=== PATIENT | female | born 1980 | race Caucasian/White ===

== ENCOUNTER 2017-12-14 03:00 | Emergency (ER) | payer SELFPAY ==
[~2017-12-14] VITALS: Ht 162.6 cm; Wt 81.7 kg
[~2017-12-14 03:00] MED LIST: ACEASPCAF PO; ACET325 PO; ALBU90OI INH; AMOX500 PO; ATOR40TA PO; AZIT250 PO; BUTASPCAFT; CARI350 PO; CEPH500 PO; CYCL10 PO; DOXY100 PO; ERYSTE250 PO; ESTR2 PO; FLUO20; FROV2.5; GUAI1200ER PO; HYDACE5 PO; HYDACE5325 PO; HYDGUAL120 PO; HYDR1TAB94 PO; IBUP400 PO; IBUP600 PO; IBUP800 PO; MELO7.5 PO; META800 PO; NAPR500 PO; NYQUIL; Naprosyn500 MG PO; OXYACE5T PO; PENVK500 PO; PROM25 PO; PROP60; Prilosec Otc20 MG PO; RXHYDACE PO; SULTRIDS PO; Ultram50 MG PO; Zofran8 MG PO
== END 2017-12-14 05:02 | disposition home or self-care (01) ==
LOC: ER 03:00
DX: S60.221A Contusion of right hand, initial encounter (principal); F17.200 Nicotine dependence, unspecified, uncomplicated; Z90.710 Acquired absence of both cervix and uterus; W22.8XXA Striking against or struck by other objects, initial encounter
CPT/HCPCS: 73130; 99283

== ENCOUNTER 2019-01-27 07:07 | Day surgery (SDC) | payer OTHER ==
[~2019-01-27 07:07] MED LIST changes: +OMEPRAZOLE MAGN20 MG PO; +Prinivil5 MG PO; +SERT100 PO
--- NOTE | 2019-01-27 07:37 | NUR ---
Ambulatory in Day Surgery History, Chart, Medications and Allergies reviewed before start of procedure.Patient confirms NPO status and agrees with scheduled surgery.
--- NOTE | 2019-01-27 08:14 | NUR ---
01/27/19 0814 Meg Arce History, Chart, Medications and Allergies reviewed before start of procedure.MODERATE SEDATION DUE TO TRISTON. MONITOR INTACT WITH CONTINUOUS PULSE OXIMETRY AND INTERMITTENT BP.3-LEAD EKG REVIEWED WITH PHYSICIAN PRIOR TO START OF PROCEDURE.O2 VIA N/C INTACT THROUGHOUT SEDATION/PROCEDURE.
--- NOTE | 2019-01-27 09:33 | NUR ---
"DAY SURGERY RN | DISCHARGE Patient denies nausea. Discharge instructions given. VSS. A/O. Steady on feet. Patient taken in wheelchair by volunteer to front entance. SO is ride. All belongings returned to patient."
== END 2019-01-27 12:00 | disposition home or self-care (01) ==
LOC: ORSCMMR 07:07 → ORD 08:00 → ORSCMMR 08:00
PROVIDERS: Internal Medicine Gastroenterology
PROC: 0DB98ZX Excision of Duodenum, Via Natural or Artificial Opening Endoscopic, Diagnostic (ICD-10-PCS; principal; 2019-01-27 08:00)
PROC: 0DB68ZX Excision of Stomach, Via Natural or Artificial Opening Endoscopic, Diagnostic (ICD-10-PCS; principal; 2019-01-27 08:00)
PROC: 0DB58ZX Excision of Esophagus, Via Natural or Artificial Opening Endoscopic, Diagnostic (ICD-10-PCS; principal; 2019-01-27 08:00)
DX: K21.9 Gastro-esophageal reflux disease without esophagitis (principal); R10.13 Epigastric pain; K29.80 Duodenitis without bleeding; K44.9 Diaphragmatic hernia without obstruction or gangrene; G47.33 Obstructive sleep apnea (adult) (pediatric); I10 Essential (primary) hypertension; E78.00 Pure hypercholesterolemia, unspecified; Z79.899 Other long term (current) drug therapy
CPT/HCPCS: 88305; 88342; J2250; J2405; J3010; J7120

== ENCOUNTER 2020-09-08 21:43 | Inpatient (IN) | payer OTHER ==
[~2020-09-08] VITALS: Ht 162.6 cm; Wt 98.4 kg
[2020-09-08 22:07] LABS: BASOPHILS ABSOLUTE AUTO 0.03 K/mm3 (0.00-0.23); BASOPHILS PERCENT AUTO 0 % (0-2); EOSINOPHILS PERCENT AUTO 0 % (0-6); Hematocrit 40.5 % (33.0-51.0); Hemoglobin 13.1 g/dL (11.5-16.0); IMMATURE GRAN PERCENT AUTO 1 % (0-1); LYMPHOCYTES ABSOLUTE AUTO 3.04 K/mm3 (0.84-5.20); LYMPHOCYTES PERCENT AUTO 17 % (21-46); MONOCYTES ABSOLUTE AUTO 1.12 K/mm3 (0.16-1.47); MONOCYTES PERCENT AUTO 6 % (4-13); Mean Corpuscular HGB 26.8 pg (26.0-34.0); Mean Corpuscular HGB Conc 32.3 g/dL (31.5-36.5); Mean Corpuscular Volume 83 fL (80-100); Mean Platelet Volume 9.7 fL (9.1-12.4); NEUTROPHILS PERCENT AUTO 75 % (41-73); Platelet Count 290 K/mm3 (150-400); RDW Coefficient Variation 15.8 % (11.7-14.2); RDW Standard Deviation 47.8 fL (35.1-46.3); Red Blood Cell Count 4.89 M/mm3 (3.80-5.20); White Blood Cell Count 17.49 K/mm3 (4.00-11.30)
[2020-09-08 22:28] LABS: Alanine Aminotransfer (ALT/SGP 33 U/L (12-78); Albumin, Blood 3.8 g/dL (3.4-5.0); Alk Phos 88 U/L (50-136); Anion Gap 8 mmol/L (6-16); Aspartate Aminotrans (AST/SGOT 10 U/L (12-37); Bilirubin, Total 0.1 mg/dL (0.1-1.0); Blood Urea Nitrogen 30 mg/dL (8-24); Bun/Creatinine Ratio 37.9 (12.0-20.0); CO2, Blood 23 mmol/L (21-32); Calcium, Blood 8.6 mg/dL (8.5-10.1); Chloride, Blood 110 mmol/L (98-108); Creatinine, Blood 0.79 mg/dL (0.40-1.00); Globulin, Blood 3.7 g/dL (2.2-4.0); Glomerular Filtration Rate >60 (60-); Glucose, Blood 124 mg/dL (70-99); Potassium, Blood 3.7 mmol/L (3.5-5.5); Sodium, Blood 141 mmol/L (136-145); Total Protein, Blood 7.5 g/dL (6.4-8.2); Troponin I <0.015 ng/mL (0.000-0.040)
[2020-09-08 22:34] LABS: Magnesium, Blood 1.8 mg/dL (1.6-2.4)
[2020-09-08 23:54] LABS: Adenovirus Not Detected (NOT DETECT); Bordetella pertussis Not Detected (NOT DETECT); Chlamydophila pneumoniae Not Detected (NOT DETECT); Coronavirus 229E Not Detected (NOT DETECT); Coronavirus HKU1 Not Detected (NOT DETECT); Coronavirus NL63 Not Detected (NOT DETECT); Coronavirus OC43 Not Detected (NOT DETECT); Human Metapneumovirus Not Detected (NOT DETECT); Human Rhinovirus/Enterovirus Detected (NOT DETECT); Influenza A/2009-H1 Not Detected (NOT DETECT); Influenza A/H1 Not Detected (NOT DETECT); Influenza A/H3 Not Detected (NOT DETECT); Influenza B Not Detected (NOT DETECT); Mycoplasma pneumoniae Not Detected (NOT DETECT); Parainfluenza Virus 1 Not Detected (NOT DETECT); Parainfluenza Virus 2 Not Detected (NOT DETECT); Parainfluenza Virus 3 Not Detected (NOT DETECT); Parainfluenza Virus 4 Not Detected (NOT DETECT); Respiratory Syncytial Virus Not Detected (NOT DETECT); SARS-Cov-2 (COVID-19), BioFire Not Detected (NOT DETECT)
[2020-09-09 00:36] LABS: Source, Urine Clean Catch
[2020-09-09 00:41] LABS: Bilirubin, Urine Neg (Neg); Blood, Urine 3+ (Neg); Glucose Qualitative, Urine Neg (Neg); Ketones, Urine Neg (Neg); Leukocyte Esterase, Urine 1+ (Neg); Nitrite, Urine Neg (Neg); Protein, Urine Neg (Neg); Urobilinogen, Urine NORM (Normal)
[2020-09-09 00:47] LABS: Appearance, Urine Clear (Clear); Bacteria Mod /hpf; Color, Urine Yellow (P-Yellow); Red Blood Cells, Urine 0-2 /hpf (0-2); Squamous Epithelial Cells Few /hpf (Few)
[2020-09-09 01:56] LABS: Base Excess Venous -1.6 mmol/L; Bicarbonate Venous 22.6 mmol/L (24.0-30.0); PCO2 Venous 36.4 mmHg (38-42); PO2 Venous 31.3 mmHg (38-42); pH Blood Venous 7.41 (7.34-7.37)
--- NOTE | 2020-09-09 04:35 | NUR ---
ADMIT NOTE PT ARRIVED TO PCU FROM ED AT APPROX 0302. PT AMBULATED FROM HALLWAY TO PCU BED W/O ASSISTANCE. PT A&OX4. SP02>92% ON RA. PT HAS A NON PRODUCTIVE COUGH OCCASIONALLY. SOB UPON EXERTION. TELEMETRY READS SINUS RHYTHM, HR 60'S. PT WAS ABLE TO AMBULATE TO BATHROOM AND BACK TO BED W/O ASSISTANCE, MINIMAL SOB. PT DENIES PAIN. NS INFUSING PER EMAR. CALL LIGHT IN REACH. WILL CONTINUE TO MONITOR UNTIL END OF SHIFT.
--- NOTE | 2020-09-09 05:48 | NUR ---
CRITICAL LAB LAB CALLED AT APPROX 0445 TO NOTIFY CRITICAL LAB VALUE OF LACTIC ACID: 4.5. CALL PLACED TO MD WYATT. MD WYATT WITH ORDERS FOR REPEAT LACTIC ACID LAB AT NOON. WILL CONTINUE TO MONITOR.
--- NOTE | 2020-09-09 06:25 | NUR ---
SHIFT SUMMARY PT ARRIVED TO PCU THIS MORNING, SEE ADMIT NOTE. PT A&OX4. SP02>92% ON RA. PT HAS A NON PRODUCTIVE COUGH OCCASIONALLY. SOB UPON EXERTION. TELEMETRY READS SINUS RHYTHM, HR 60'S. PT WAS ABLE TO AMBULATE TO BATHROOM AND BACK TO BED W/O ASSISTANCE, MINIMAL SOB. PT DENIES PAIN. NS INFUSING PER EMAR. PT HAD CRITICAL LAB VALUE LACTIC ACID, SEE PREVIOUS NOTE. PT SLEPT/WATCHED TV INDEPENDENTLY IN ROOM THIS MORNING. CALL LIGHT IN REACH. WILL CONTINUE TO MONITOR UNTIL END OF SHIFT.
[2020-09-09 08:43] LABS: BASOPHILS ABSOLUTE AUTO 0.01 K/mm3 (0.00-0.23); BASOPHILS PERCENT AUTO 0 % (0-2); EOSINOPHILS ABSOLUTE AUTO 0.03 K/mm3 (0.00-0.68); EOSINOPHILS PERCENT AUTO 0 % (0-6); Hematocrit 37.1 % (33.0-51.0); Hemoglobin 12.1 g/dL (11.5-16.0); IMMATURE GRAN ABSOLUTE AUTO 0.13 K/mm3 (0.00-0.10); IMMATURE GRAN PERCENT AUTO 1 % (0-1); LYMPHOCYTES ABSOLUTE AUTO 2.45 K/mm3 (0.84-5.20); LYMPHOCYTES PERCENT AUTO 16 % (21-46); MONOCYTES ABSOLUTE AUTO 0.38 K/mm3 (0.16-1.47); MONOCYTES PERCENT AUTO 3 % (4-13); Mean Corpuscular HGB 26.9 pg (26.0-34.0); Mean Corpuscular HGB Conc 32.6 g/dL (31.5-36.5); Mean Corpuscular Volume 83 fL (80-100); NEUTROPHILS ABSOLUTE AUTO 12.45 K/mm3 (1.96-9.15); NEUTROPHILS PERCENT AUTO 81 % (41-73); Platelet Count 272 K/mm3 (150-400); RDW Coefficient Variation 15.9 % (11.7-14.2); RDW Standard Deviation 47.7 fL (35.1-46.3); Red Blood Cell Count 4.49 M/mm3 (3.80-5.20); White Blood Cell Count 15.45 K/mm3 (4.00-11.30)
[2020-09-09 09:02] LABS: Anion Gap 10 mmol/L (6-16); Blood Urea Nitrogen 21 mg/dL (8-24); Bun/Creatinine Ratio 29.2 (12.0-20.0); CO2, Blood 20 mmol/L (21-32); Chloride, Blood 113 mmol/L (98-108); Creatinine, Blood 0.72 mg/dL (0.40-1.00); Glomerular Filtration Rate >60 (60-); Glucose, Blood 129 mg/dL (70-99); Sodium, Blood 143 mmol/L (136-145)
--- NOTE | 2020-09-09 10:51 | NUR ---
PHYSICIAN NOTIFIED AT BEDSIDE WITH PT. AND PT CONCERNED WITH POSSIBLE DISHCARGE TODAY. REQUESTING TRANSFER TO [facility] IF DISHCARGED. PHYSICIAN NOTIFIED. PHYSICIAN WILL SPEAK WITH PT AND THIS AFTERNOON.
--- NOTE | 2020-09-09 18:40 | NUR ---
SHIFT SUMMARY PT ALERT AND ORIENTED X 4. PT ANXIOUS T/O SHIFT D/T INCREASE IN WORK OF BREATHING. PHYSICIAN NOTIFIED. RESPIRATORY CARE PROVIDING TREATMENTS. PT REPORTS NO RELIEF. OXYGEN SATURATION MAINTAINED ABOVE 92% ON RA. HR STABLE. BP STABLE. PT PROVIDED WITH MEDICATIONS PER EMAR FOR ANXIETY. PT REPORTS MINIMAL RELIEF. PT WORE BIPAP AT TIMES T/O SHIFT. PT REPORTS TO HAVE INCREASE IN ANXIETY D/T BIPAP. PT INDEPENDENT IN ROOM. WILL CONTINUE TO MONITOR UNTIL REPORT GIVEN TO NIGHTSHIFT RN.
[2020-09-10 04:14] LABS: BASOPHILS ABSOLUTE AUTO 0.02 K/mm3 (0.00-0.23); BASOPHILS PERCENT AUTO 0 % (0-2); EOSINOPHILS ABSOLUTE AUTO 0.02 K/mm3 (0.00-0.68); EOSINOPHILS PERCENT AUTO 0 % (0-6); Hematocrit 37.8 % (33.0-51.0); IMMATURE GRAN ABSOLUTE AUTO 0.13 K/mm3 (0.00-0.10); IMMATURE GRAN PERCENT AUTO 1 % (0-1); LYMPHOCYTES PERCENT AUTO 12 % (21-46); MONOCYTES ABSOLUTE AUTO 0.44 K/mm3 (0.16-1.47); MONOCYTES PERCENT AUTO 3 % (4-13); Mean Corpuscular HGB 26.7 pg (26.0-34.0); Mean Corpuscular HGB Conc 31.7 g/dL (31.5-36.5); Mean Corpuscular Volume 84 fL (80-100); Mean Platelet Volume 9.6 fL (9.1-12.4); NEUTROPHILS PERCENT AUTO 83 % (41-73); Platelet Count 246 K/mm3 (150-400); RDW Standard Deviation 49.4 fL (35.1-46.3); Red Blood Cell Count 4.49 M/mm3 (3.80-5.20); White Blood Cell Count 12.91 K/mm3 (4.00-11.30)
[2020-09-10 04:31] LABS: Anion Gap 4 mmol/L (6-16); Blood Urea Nitrogen 27 mg/dL (8-24); Bun/Creatinine Ratio 38.7 (12.0-20.0); CO2, Blood 25 mmol/L (21-32); Calcium, Blood 8.9 mg/dL (8.5-10.1); Chloride, Blood 112 mmol/L (98-108); Glomerular Filtration Rate >60 (60-); Glucose, Blood 162 mg/dL (70-99); Potassium, Blood 4.3 mmol/L (3.5-5.5); Sodium, Blood 141 mmol/L (136-145)
--- NOTE | 2020-09-10 07:28 | NUR ---
SHIFT SUMMARY PATIENT VERY ANXIOUS AND FRUSTRATED WITH HER CARE. PATIENT FEELS SHE IS NOT RECEIVING ALL THE TREATMENTS SHE SHOULD BE AND IS FRUSTRATED THAT THE DR WILL NOT TRANSFER HER TO A DIFFERENT HOSPITAL. PATIENT EVENTUALLY ABLE TO SETTLE DOWN LAST NIGHT AND FALL ASLEEP. PATIENT APPEARED TO SLEEP WELL THROUGHOUT MOST OF THE NIGHT AND USED HER BIPAP FOR APPROX 6 HOURS LAST NIGHT. PATIENT BECAME VERY ANXIOUS THIS MORNING WHEN SHE WAS UNABLE TO GET THROUGH TO HER JOB TO CALL IN SICK. STAFF ASSISTED PATIENT WITH DAILING HER WORK NUMBER BUT NUMER WOULD NOT GO THROUGH. MULTIPLE ATTEMPTS TO GET THROUGH TO HER WORK WERE MADE, STAFF ASSISTED PATIENT WITH ATTEMPTS WITH NO SUCCESS. PATIENT ALSO VERY FRUSTARTED THAT ONLY ONE VISITOR A DAY IS ALLOWED. PATIENT VERY ANXIOUS AND AGITATED THIS MORNING. REPORT GIVEN TO ONCOMING RN.
--- NOTE | 2020-09-10 09:01 | NUR ---
PATIENT SLEEPING. MOM IN ROOM. NOT AWAKENED FOR MORNING MED OF CLARITIN AND NONSCHEDULED SUDAFED. SATS MID TO LOW 90'S. WCTM
--- NOTE | 2020-09-10 09:57 | NUR ---
ASKED FOR ANOTHER COUGH MED LIKE; TESSALON PEARLES, DELSUM, LORTAB ELIXIR OR ROBITUSSIN W/CODEINE. ORDER TESSALON PEARLES 1-2 Q6 HR PRN AND GUIAFENESIN W/CODEINE 10 ML Q 4 HRS PRN.
--- NOTE | 2020-09-10 11:35 | NUR ---
PATIENT UPSET AND WANTING TO LEAVE AMA. OLIVER RN AND ANASTACIO RN IN TO TALK TO PATIENT W/MOTHER IN ATTENDANCE. PATIENT CHANGED TO MEDICAL STATIS AND IS ABLE TO GO OUT WITH MOTHER. PATIENT OFF FLOOR AT ABOUT 10:45 AND NOT BACK YET.
--- NOTE | 2020-09-10 12:18 | NUR ---
LEAVES AMA. OLIVER RN REVIEWS PROS AND CONS OF LEAVING. SIGNS AMA. ADULT FEMALE IS WITH PATIENT. TELE TAKEN OFF AND IV OUT. IN W/C TO POV
== END 2020-09-10 12:35 | disposition left against medical advice (07) | DRG 189 ==
LOC: ER 21:43 → PCU 21:44 → ER 09-09 02:21 → PCU 09-09 03:06
PROVIDERS: Emergency Medicine; Internal Medicine Critical Care Medicine; ADMIT Internal Medicine
DX: J96.00 Acute respiratory failure, unspecified whether with hypoxia or hypercapnia (principal); J44.1 Chronic obstructive pulmonary disease with (acute) exacerbation; J44.0 Chronic obstructive pulmonary disease with (acute) lower respiratory infection; J20.6 Acute bronchitis due to rhinovirus; F41.8 Other specified anxiety disorders; I10 Essential (primary) hypertension; R00.1 Bradycardia, unspecified; E86.0 Dehydration; G47.33 Obstructive sleep apnea (adult) (pediatric); E78.5 Hyperlipidemia, unspecified; K21.9 Gastro-esophageal reflux disease without esophagitis; E66.9 Obesity, unspecified; Z68.36 Body mass index [BMI] 36.0-36.9, adult; F17.290 Nicotine dependence, other tobacco product, uncomplicated
CPT/HCPCS: 0202U; 36415; 71045; 80048; 80053; 81001; 82803; 83605; 83690; 83735; 83880; 84484; 85025; 85379; 87086; 93005; 93010; 94640; 94644; 94660; 94760; 94762; 96361; 96374; 96375; 99285-25; A9270; J0696; J1650; J2060; J2405; J2920; J2930; J3475; J7030; J7120

== ENCOUNTER 2020-09-13 00:42 | Emergency (ER) | payer OTHER ==
[~2020-09-13] VITALS: Ht 162.6 cm; Wt 97.1 kg
[2020-09-13 02:12] LABS: BASOPHILS ABSOLUTE AUTO 0.03 K/mm3 (0.00-0.23); BASOPHILS PERCENT AUTO 0 % (0-2); EOSINOPHILS PERCENT AUTO 0 % (0-6); Hematocrit 37.5 % (33.0-51.0); Hemoglobin 12.2 g/dL (11.5-16.0); IMMATURE GRAN ABSOLUTE AUTO 0.34 K/mm3 (0.00-0.10); IMMATURE GRAN PERCENT AUTO 3 % (0-1); LYMPHOCYTES ABSOLUTE AUTO 2.46 K/mm3 (0.84-5.20); LYMPHOCYTES PERCENT AUTO 20 % (21-46); MONOCYTES ABSOLUTE AUTO 0.82 K/mm3 (0.16-1.47); MONOCYTES PERCENT AUTO 7 % (4-13); Mean Corpuscular HGB Conc 32.5 g/dL (31.5-36.5); Mean Corpuscular Volume 83 fL (80-100); Mean Platelet Volume 9.7 fL (9.1-12.4); NEUTROPHILS ABSOLUTE AUTO 8.46 K/mm3 (1.96-9.15); NEUTROPHILS PERCENT AUTO 70 % (41-73); NRBC ABSOLUTE 0.02 K/mm3 (0.00-0.02); NRBC Auto 0.2 /100 WBC (0.0-0.2); Platelet Count 246 K/mm3 (150-400); RDW Coefficient Variation 15.9 % (11.7-14.2); RDW Standard Deviation 48.2 fL (35.1-46.3); Red Blood Cell Count 4.52 M/mm3 (3.80-5.20); White Blood Cell Count 12.11 K/mm3 (4.00-11.30)
[2020-09-13 02:26] LABS: Anion Gap 9 mmol/L (6-16); Blood Urea Nitrogen 33 mg/dL (8-24); CO2, Blood 22 mmol/L (21-32); Calcium, Blood 8.7 mg/dL (8.5-10.1); Chloride, Blood 116 mmol/L (98-108); Glomerular Filtration Rate >60 (60-); Glucose, Blood 126 mg/dL (70-99); Potassium, Blood 3.8 mmol/L (3.5-5.5); Sodium, Blood 147 mmol/L (136-145)
[2020-09-13 02:37] LABS: Bicarbonate Venous 22.7 mmol/L (24.0-30.0); PO2 Venous 170 mmHg (38-42); pH Blood Venous 7.45 (7.34-7.37)
== END 2020-09-13 03:16 | disposition home or self-care (01) ==
LOC: ER 00:42
PROVIDERS: Student in an Organized Health Care Education/Training Program
DX: F41.9 Anxiety disorder, unspecified (principal); R06.02 Shortness of breath; J38.3 Other diseases of vocal cords; J44.9 Chronic obstructive pulmonary disease, unspecified; F17.290 Nicotine dependence, other tobacco product, uncomplicated; Z79.899 Other long term (current) drug therapy
CPT/HCPCS: 71045; 80048; 82803; 85025; 96374; 99283-25; J2060

== ENCOUNTER → 2021-06-17 | Outpatient (CLI) | payer OTHER | END | disposition home or self-care (01) | LOC: LAB 10:06 → LAB SHORT 10:06 | DX: N64.4 Mastodynia (principal) | CPT/HCPCS: 87070; 87205 ==

== ENCOUNTER → 2021-09-18 | Outpatient (CLI) | payer OTHER | END | disposition home or self-care (01) | LOC: LAB 08:50 → LAB SHORT 08:50 | DX: N64.9 Disorder of breast, unspecified (principal) | CPT/HCPCS: 87252; 87254 ==

== ENCOUNTER → 2021-09-18 | Outpatient (CLI) | payer OTHER | END | disposition home or self-care (01) | LOC: LAB SHORT 10:51 → LAB 10:51 | DX: N64.9 Disorder of breast, unspecified (principal) | CPT/HCPCS: 87070; 87075; 87205 ==

== ENCOUNTER 2023-01-04 11:58 | Emergency (ER) | payer OTHER ==
[~2023-01-04] VITALS: Ht 162.6 cm; Wt 77.1 kg
[2023-01-04] MEDS ORDERED: AMOCLA875 PO (14:19)
== END 2023-01-04 14:34 | disposition home or self-care (01) ==
LOC: ER 11:58
DX: S61.253A Open bite of left middle finger without damage to nail, initial encounter (principal); L03.012 Cellulitis of left finger; J44.9 Chronic obstructive pulmonary disease, unspecified; F17.290 Nicotine dependence, other tobacco product, uncomplicated; W54.0XXA Bitten by dog, initial encounter; Z79.899 Other long term (current) drug therapy
CPT/HCPCS: 90471; 90714; 99283-25; A9270

== ENCOUNTER 2024-03-15 18:38 | Emergency (ER) | payer OTHER ==
[~2024-03-15] VITALS: Ht 167.6 cm; Wt 86.2 kg
[~2024-03-15 18:38] MED LIST changes: +AMOCLA875 PO
[2024-03-15 19:11] VITALS: BP 171/79
[2024-03-15] MEDS ORDERED: HYDROcodone 5-APAP 325 TAB PO ONE (19:15)
[2024-03-15] MEDS ORDERED: OxyCODONE 5 mg/Acetamin 325 mg TABLET PO ONE (21:55)
[2024-03-15] MEDS ORDERED: Amoxicillin/Clavulanate K 875 MG Tab PO ONE (23:50)
[2024-03-15] MEDS ORDERED: AMOCLA875 PO (23:52)
[2024-03-15] MEDS ORDERED: HYDR1TAB94 PO (23:52)
== END 2024-03-16 00:04 | disposition home or self-care (01) ==
LOC: ER 18:38
DX: S61.257A Open bite of left little finger without damage to nail, initial encounter (principal); W54.0XXA Bitten by dog, initial encounter; Y93.89 Activity, other specified; J44.9 Chronic obstructive pulmonary disease, unspecified; F17.200 Nicotine dependence, unspecified, uncomplicated; Z79.899 Other long term (current) drug therapy
CPT/HCPCS: 12002; 73130; 99283-25; A9270